=== PATIENT | male | born 1975 | race Two or more races ===

== ENCOUNTER 2018-09-24 23:43 | Emergency (ER) | payer SELFPAY | END 2018-09-25 00:13 | disposition left against medical advice (07) | LOC: ER 23:48 | DX: R21 Rash and other nonspecific skin eruption (principal); Z53.21 Procedure and treatment not carried out due to patient leaving prior to being seen by health care provider ==

== ENCOUNTER 2018-09-25 05:18 | Emergency (ER) | payer SELFPAY ==
[~2018-09-25] VITALS: Ht 170.2 cm; Wt 77.1 kg
[2018-09-25] MEDS ORDERED: methylPREDNISolone SOD SUCC 125 MG/2 ML VL IM ONE (07:15)
[2018-09-25] MEDS ORDERED: LORazepam 0.5 MG TAB PO ONE (07:15)
[2018-09-25] MEDS ORDERED: AMMONIA 0.33 ML INHALANT IN ONE (08:31)
[2018-09-25 13:34] VITALS: BP 117/78
[2018-09-25] MEDS ORDERED: FLUMAZENIL 0.1 MG/ML INJ 10ML MDV IV ONE (14:15)
== END 2018-09-25 18:34 | disposition home or self-care (01) ==
LOC: ER 05:20
DX: F41.9 Anxiety disorder, unspecified (principal); T78.40XA Allergy, unspecified, initial encounter; F12.10 Cannabis abuse, uncomplicated; F15.10 Other stimulant abuse, uncomplicated; X58.XXXA Exposure to other specified factors, initial encounter
CPT/HCPCS: 96372; 96374; 99284; J2930